=== PATIENT | male | born 1945 | race Caucasian/White ===

== ENCOUNTER 2018-03-07 08:50 | Outpatient (CLI) | payer MEDICARE, BC ==
--- NOTE | 2018-03-07 11:25 | PRG ---
DATE OF SERVICE: 03/07/2018 SUBJECTIVE: A 72-year-old male who presents to the wound clinic today for a followup on his right fo ot plantar forefoot ulceration. The patient has had this wound for approximately 4 months. I have conrad dickn seeing him in my regular Podiatry clinic and I have transferred him [facility] for more advanced therapy. He has been getting daily gauze dressing changes and biweekly debridemen ts with minimal improvement. We have recently placed him into a mobilization walking boot in order t o reduce the pressure on the wound. The patient states that the pain in the wound has actually reduc ed. The patient denies nausea, vomiting, fevers or chills at this time. He continues to smoke again st my recommendations to work on cessation. PHYSICAL EXAMINATION: Ulceration to the right plantar sub-third metatarsal head area measures 0.6 cm x 0.3 cm x 0.5 cm of depth. There is a 90% granulation tissue, 10% slough. Periwound hyperkeratoti c buildup is present. No periwound erythema, edema or warmth. ASSESSMENT: 1. 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 2. Peripheral vascular disease. 3. Nicotine dependence. PLAN: 1. Again, discussed tobacco cessation, which he declines. 2. Full thickness debridement of the hyperkeratotic buildup as well as the wound base, removing all nonviable tissue within the wound base and biofilm with a 15 blade and dermal curet down to a bleedin g granular wound base. 3. I am going to start him on daily Promogran to wound base with Aquacel AG covering, gauze and [place] n. He is to continue wearing the immobilization boot at all times when standing and walking, not to use the boot while driving. 4. The patient will follow up with me in 1 week.
[2018-03-07] MEDS ORDERED: Sodium Chloride 0.9% 15 ML NEB ONE (14:48)
== END 2018-03-07 08:51 | disposition home or self-care (01) ==
LOC: WCC 08:50
PROVIDERS: ATTEND Podiatrist Foot & Ankle Surgery
DX: L97.419 Non-pressure chronic ulcer of right heel and midfoot with unspecified severity (principal); I73.9 Peripheral vascular disease, unspecified; F17.200 Nicotine dependence, unspecified, uncomplicated
CPT/HCPCS: 11042; 99204; A4218; G0463

== ENCOUNTER 2018-03-14 10:47 | Outpatient (CLI) | payer MEDICARE, BC ==
--- NOTE | 2018-03-14 13:25 | PRG ---
DATE OF SERVICE: 03/14/2018 SUBJECTIVE: This is a 72-year-old male who returns today for followup right plantar foot ulceration. He has been having his to do the daily dressing changes with Promogran, Aquacel AG, gauze and Kerlix and has had no problems with this. Denies nausea, vomiting, fevers or chills. PHYSICAL EXAMINATION: Ulceration to the right plantar forefoot measuring 0.6 cm x 0.2 cm x 0.5 cm. There is hyperkeratotic buildup around the wound. Less maceration. No periwound erythema, edema or warmth. No malodor. No drainage. Does not probe to bone or tendon. ASSESSMENT: 1. Non-pressure chronic ulceration of the right plantar forefoot. 2. Peripheral vascular disease, unspecified. PLAN: 1. Full thickness debridement of subcutaneous tissue layer down to a bleeding granular wound base, r emoving all nonviable tissue from the wound base as well as biofilm, hyperkeratotic tissue area from around the wound edges. This was done with a 15 blade and dermal curette. The patient tolerated the procedure well. 2. I am going to continue with Promogran and Aquacel AG dressing changes on a daily basis and contin ue with offloading boot at all times. 3. The patient will follow up with me in 1 week.
[2018-03-17] MEDS ORDERED: Sodium Chloride 0.9% 15 ML NEB ONE (20:54)
== END 2018-03-14 10:48 | disposition home or self-care (01) ==
LOC: WCC 10:47
PROVIDERS: ATTEND Podiatrist Foot & Ankle Surgery
DX: L97.419 Non-pressure chronic ulcer of right heel and midfoot with unspecified severity (principal); I73.9 Peripheral vascular disease, unspecified
CPT/HCPCS: 11042

== ENCOUNTER 2019-03-19 11:08 | Inpatient (IN) | payer MEDICARE, BC ==
--- NOTE | 2019-03-19 11:55 | RAD ---
THREE VIEWS RIGHT FOOT: COMPARISON: None. HISTORY: Right foot swelling. Wound on the bottom of the foot. FINDINGS: Three views of the right foot show the patient to be status post amputation of the 2nd toe through th e metatarsophalangeal joint. No fracture or dislocation are seen. No osseous erosions are seen. IMPRESSION: No osseous erosions identified. POS: [facility]
[2019-03-19 12:26] LABS: #Eosinphils 0.1 thou/uL (0.0-0.7); #Lymphocytes 1.5 thou/uL (1.20-3.40); #Monocytes 1.3 thou/uL (0.11-0.59); #Neutrophils 11.6 thou/uL (1.40-6.50); %Basophils 0.2 % (0.0-1.0); %Eosinophils 0.5 % (0.0-10.0); %Lymphocytes 10.2 % (21.0-51.0); %Neutrophils 80.1 % (42.0-75.0); Hemoglobin 16.6 g/dL (14.0-18.0); Mean Corpuscular HGB CONC 32.9 g/dL (32.0-36.0); Mean Corpuscular Hemoglobin 31.1 pg (27.0-31.0); Mean Corpuscular Volume 94.6 fL (78.0-98.0); Mean Platelet Volume 7.3 fL (7.4-10.4); Platelet Count 190 thou/uL (130-400); RBC Distribution Width 12.7 % (11.5-14.5); Red Blood Cell (RBC) Count 5.34 mill/uL (4.70-6.10); White Blood Cell (WBC) Count 14.5 thou/uL (4.8-10.8)
[2019-03-19 12:49] LABS: ALT (SGPT) 13 U/L (8-55); AST (SGOT) 18 U/L (5-34); Albumin 4.2 g/dL (3.4-4.8); Alkaline Phosphatase 71 U/L (40-150); Anion Gap 16 mmol/L (10-20); BUN (Urea Nitrogen) 24 mg/dL (8.4-25.7); Bilirubin, Total 1.5 mg/dL (0.2-1.2); Calc. Creatinine Clearance 0 mL/min (70-130); Calcium 9.6 mg/dL (7.8-10.44); Carbon Dioxide 22 mmol/L (23-31); Chloride 100 mmol/L (98-107); Estimated GFR-MDRD 67; Glucose 109 mg/dL (83-110); Potassium 4.1 mmol/L (3.5-5.1); Protein, Total 7.2 g/dL (5.8-8.1); Sodium 134 mmol/L (136-145)
[2019-03-19] MEDS ORDERED: Ondansetron ODT 4 MG TAB SL PRN (16:36)
[2019-03-19] MEDS ORDERED: HYDROcodone/Acetaminophen 5/325 mg Tablet PO PRN ×2 (16:36)
[2019-03-19] MEDS ORDERED: Acetaminophen 325 MG TAB PO PRN (16:36)
[2019-03-19] MEDS ORDERED: Ondansetron PF 4 MG/2 ML Vial IVP PRN (16:36)
[2019-03-19 16:53] VITALS: BMI 27.4
[2019-03-19] MEDS: Clindamycin/D5W 900 MG in Premix Bag 1 BAG IVPB SCH (19:25)
[2019-03-19] MEDS: Vancomycin HCl 1 GM in Premix Bag 1 BAG IVPB SCH (19:26)
[2019-03-19] MEDS ORDERED: Heparin 1,000 UNITS/ML VIAL ONE (20:38)
--- NOTE | 2019-03-19 22:26 | HP ---
CHIEF COMPLAINT: Foot infection. HISTORY OF PRESENT ILLNESS: This patient is a 73-year-old male with no significant past medical history other than tobacco abuse, who had a history of osteomyelitis in his right second toe requiring amputation. Since that time, the patient has had problems with calluses on his feet, primarily on that right foot. He has developed callus on the plantar surface of the forefoot, which has been followed by Dr. Hummel and felt like they were making good progress, wearing appropriate shoes, keeping it appropriately bandaged. Subsequently, the patient saw Dr. Hummel yesterday, because he was having some increased redness and evidence of infection. Dr. Hummel put him on Augmentin. He took 1 pill and subsequently had multiple episodes of nausea, vomiting, diarrhea, abdominal cramping, sweats and lightheadedness. He called Dr. Hummel back and he recommended he come to the emergency department. They have been treating this with Aquacel in a silver solution and has felt like it was actually doing fairly well until Saturday when this became more inflamed. REVIEW OF SYSTEMS: All other systems reviewed and essentially negative. All pertinent positives and negatives noted in the history of present illness. Specifically the patient has denied any fevers or chills. PAST MEDICAL HISTORY: Negative other than the above-mentioned osteomyelitis. 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 PAST SURGICAL HISTORY: Cataractectomy, right second toe amputation secondary to osteomyelitis and a partial colon resection due to the colovesicular fistula and diverticular disease. FAMILY HISTORY: Mother at 86. Father at 91. Does not believe either one of them had any significant medical issues. SOCIAL HISTORY: The patient smokes 2 packs a day. He states he does drink alcohol, but only couple of beers on occasion, nothing regular. Denies drugs. He is . He is full code and his would be his surrogate decision maker. CURRENT MEDICATIONS: Calcium supplements and aspirin. ALLERGIES: ONLY THE ABOVE-MENTIONED AUGMENTIN, WHICH CAUSED THE GI DISTRESS. PHYSICAL EXAMINATION: VITAL SIGNS: Temperature 97.8, pulse 65, respirations 18, O2 saturation 97% on room air, BP 138/82. GENERAL APPEARANCE: Age-appropriate male, in no distress. He is awake, alert, oriented, pleasant, cooperative. HEENT: PERRL, no OP lesions. NECK: Supple and symmetric. HEART: Regular rate and rhythm without murmurs, gallops, or rubs. LUNGS: Clear to auscultation bilaterally with good chest wall expansion and air exchange. ABDOMEN: Soft, nontender, and nondistended. Positive bowel sounds. No masses. No organomegaly. EXTREMITIES: The upper extremities are normal. Right lower extremity has the surgically absent right second toe with some flexion type changes in the toes lateral to that. There is a 1.5 cm callused area with central necrosis on the plantar surface of the central forefoot. Under the metatarsophalangeal joint of the 3rd toe, there is erythema extending over the dorsum of the foot back to near the ankle. Pulses are present in PT and dorsalis pedis bilaterally. NEUROLOGIC: He appears to be intact. He has normal sensation. PSYCHIATRIC: Normal affect and behavior. LABORATORY DATA: White count 14.5, hemoglobin 6.6, platelets 190. Sodium 134, potassium 4.1, chloride 100, CO2 22, BUN 24, creatinine is 1.08, rather glucose 109, lactic acid 1.1, total bilirubin 1.5, ALT 13, AST 18, albumin 4.2. IMAGING: Foot x-ray is negative for acute changes. IMPRESSION AND PLAN: 1. Cellulitis of the right lower extremity in a patient with a prior toe amputation for osteomyelitis and chronic callus formation. The patient attempted oral antibiotics, but had significant side effects to that. He is now admitted to the hospital on IV vancomycin. We will continue that for now. Consult Dr. Hummel. Continue with wound care consult. Once the patient appears to have some resolution of the cellulitic changes, he can likely be switched to p.o. In the meantime, we will order a CRP. If that is positive, we will need to consider an MRI to rule out osteomyelitis. 2. Tobacco abuse, chronic, stable. Needs cessation counseling. Job ID: [id number] [facility]
[2019-03-20] MEDS: Clindamycin/D5W 900 MG in Premix Bag 1 BAG IVPB SCH ×2 (05:06→15:08)
[2019-03-20 07:11] LABS: #Eosinphils 0.3 thou/uL (0.0-0.7); #Lymphocytes 2.5 thou/uL (1.20-3.40); #Monocytes 1.2 thou/uL (0.11-0.59); #Neutrophils 6.2 thou/uL (1.40-6.50); %Basophils 0.5 % (0.0-1.0); %Eosinophils 3.3 % (0.0-10.0); %Lymphocytes 24.2 % (21.0-51.0); %Monocytes 11.5 % (0.0-10.0); %Neutrophils 60.7 % (42.0-75.0); Hemoglobin 15.7 g/dL (14.0-18.0); Mean Corpuscular Hemoglobin 32.8 pg (27.0-31.0); Mean Corpuscular Volume 96.7 fL (78.0-98.0); Mean Platelet Volume 7.7 fL (7.4-10.4); Platelet Count 181 thou/uL (130-400); RBC Distribution Width 12.7 % (11.5-14.5); Red Blood Cell (RBC) Count 4.79 mill/uL (4.70-6.10); White Blood Cell (WBC) Count 10.3 thou/uL (4.8-10.8)
[2019-03-20] MEDS: Vancomycin HCl 1 GM in Premix Bag 1 BAG IVPB SCH ×2 (07:59→20:24)
[2019-03-20] MEDS: Enoxaparin Sodium 40 MG/0.4 ML SYRINGE SC SCH (08:00)
--- NOTE | 2019-03-20 13:23 | MRI ---
MRI RIGHT FOREFOOT WITHOUT CONTRAST: Date: 03/20/19 HISTORY: Cellulitis, ulcer. Partial amputation of second digit. Chronic nonhealing ulcer with redness. COMPARISON: Foot radiographs of 03/19/19. FINDINGS: Bones: There is some mild loss of normal marrow signal within the second metatarsal head at the amputation s ite extending to the neck with reactive edema extending to the mid diaphysis. There is a subtle plant ar cortical erosion. Remainder of the bones are without abnormality. Soft Tissues: There is a plantar soft tissue ulcer at the amputation site of the second digit with large area of T1 hypo and T2 hyperintense material suggesting phlegmon and likely abscess. There is extension to the skin soft tissues. Overall, the fluid collection surrounding the metatarsal head measures approximately 1.5 x 2.0 cm x 1 .2 cm. There is retraction of the flexor tendons second digit. IMPRESSION: Osteomyelitis of the second metatarsal head with small plantar cortical erosion with surrounding phle gmon and abscess within sinus tract of the skin. POS: [facility]
--- NOTE | 2019-03-20 14:46 | PDOC.PN ---
- Subjective Encounter Start Date: 03/20/19 Encounter Start Time: 08:20 Pt seen for followup re: foot infection. Denies chest pain, shortness of breath , fevers or chills. - Objective Resuscitation Status - Order Detail: 03/19/19 17:46 Resuscitation Status Routine Resuscitation Status: FULL: Full Resuscitation Vital Signs & Weight: Vital Signs (12 hours) Temp Pulse Resp BP Pulse Ox 03/20/19 08:00 97 03/20/19 07:43 98.1 F 56 L 16 118/79 97 Weight Admit Weight 191 lb 8 oz Weight 191 lb 8 oz I&O: 03/19/19 03/20/19 03/21/19 06:59 06:59 06:59 Intake Total 670 480 Balance 670 480 Result Diagrams: 03/20/19 05:41 03/19/19 12:15 Phys Exam - Physical Examination Constitutional: NAD HEENT: moist MMs Neck: supple Respiratory: clear to auscultation bilateral Cardiovascular: RRR Gastrointestinal: soft Neurological: moves all 4 limbs Psychiatric: normal affect Deviation from normal: wounds as documented Dx/Plan (1) Foot infection Code(s): L08.9 - LOCAL INFECTION OF THE SKIN AND SUBCUTANEOUS TISSUE, UNSP Status: Acute Comment: MRI foot to r/o osteomyelitis, continue IV vancomycin and clindamycin (2) Tobacco abuse Code(s): Z72.0 - TOBACCO USE Status: Chronic Comment: Pt counseled re: tobacco cessation - Plan * . Review of Systems - Review of Systems Gastrointestinal: negative: Nausea, Vomiting, Abdominal Pain, Diarrhea, Constipation, Melena, Hematochezia Genitourinary: negative: Dysuria, Frequency, Incontinence, Hematuria, Retention Musculoskeletal: Foot Pain. negative: Neck Pain, Shoulder Pain, Arm Pain, Back Pain, Hand Pain, Leg Pain - Medications/Allergies Allergies/Adverse Reactions: Allergies Allergy/AdvReac Type Severity Reaction Status Date / Time amoxicillin [From Augmentin] AdvReac Unverified 03/19/19 16:36 clavulanic acid AdvReac Unverified 03/19/19 16:36 [From Augmentin] Medications: Current Medications Enoxaparin Sodium (Lovenox) 40 mg SC 0900 [facility] Last Admin: 03/20/19 08:00 Dose: 40 mg Vancomycin HCl 1 gm/ Device 200 mls @ 200 mls/hr IVPB Q12HR [facility] Last Admin: 03/20/19 07:59 Dose: 200 mls Clindamycin Phosphate/Dextrose (900 mg/ Device) 50 mls @ 100 mls/hr IVPB Q8HR [facility] Last Admin: 03/20/19 05:06 Dose: 50 mls
[2019-03-20] MEDS: cefTRIAXone\\ROCEPHIN 2 GM in Sodium Chloride 0.9% 100 ML IVPB SCH (17:45)
[2019-03-20] MEDS: metroNIDAZOLE 500 MG TAB PO SCH (20:24)
--- NOTE | 2019-03-20 21:43 | CON ---
DATE OF CONSULTATION: 03/20/2019 REASON FOR CONSULTATION: Osteomyelitis, right foot. HISTORY OF PRESENT ILLNESS: Mr. Chahal is a 73-year-old patient with history of chronic smoking and prior 2nd toe amputation right foot, which developed after a chronic ulcer at the tip of the second toe. This occurred about 2 years before this admission and the patient did relatively well until a few months ago when he started noticing a lot of callus development at the bottom aspect of the right forefoot and these were taken care of by Dr. Hummel and things were actually looking pretty well until this past week when he developed sudden progression of inflammatory changes at the dorsal aspect of the right forefoot and he was then admitted by Dr. Hummel for a surgical intervention after the MRI demonstrated osteomyelitis of the remnant of the second metatarsal. He is otherwise feeling well. He is kind of anxious to go home because of his needs him to care for her. He denies any headaches. No visual symptoms, sore throat, odynophagia, or dysphagia. No chest pain or abdominal pain. No diarrhea. No genitourinary symptoms. He has a little bit of pain in the right foot. MEDICAL HISTORY: Remarkable for chronic smoking and that is about it. He had this partial amputation of the second toe right foot, prior colectomy for management of perforated diverticulitis here at [place]. ALLERGIES: NO TRUE HYPERSENSITIVITY REACTION TO ANY MEDICATION. HE DID HAVE NAUSEA FROM AUGMENTIN INTAKE. FAMILY HISTORY: Noncontributory. SOCIAL HISTORY: He is , retired, lives in [place]. Still smoking 2 packs per day. PHYSICAL EXAMINATION: VITAL SIGNS: T-max 98.2, blood pressure 118/79, pulse of 56, respirations 16, and O2 saturation 97%. SKIN: There is the area of erythema in the dorsal aspect of the right foot extending from the forefoot, particularly is concentrated around the amputation site the second toe going towards the midfoot region. On the bottom aspect, there is chronic ulcer, which is most likely the source of this infection and has been debrided previously few times. No other skin lesions. Some element of hammertoe noted in the right and left feet. No lymphadenopathy. HEENT: Ocular movements conjugate. Sclerae white. Oral cavity with still few teeth in place with marked decay and gum disease. NECK: Supple. No jugular vein distention or carotid bruits. LUNGS: With diminished breath sounds and some expiratory wheezing, right and left hemithorax. HEART: S1 and S2. Regular rate. No S3 or S4. ABDOMEN: Soft, not distended or tender. No ascites. No bladder distention. MUSCULOSKELETAL: No joint inflammatory activity. Pulses are 1+ in popliteal and 1+ in dorsalis pedis and posterior tibialis. Cap refill is normal. NEURO: Nonfocal. Cognitive function appears to be normal. Speech is normal. Recall is normal as well. LABORATORY DATA: White cell count 14.5, down to 10.3, hemoglobin 16, platelets 190 with 80% neutrophils. Sodium 134, creatinine 1.08, bilirubin 1.5 with normal transaminases and alkaline phosphatase. CRP was 8.78, albumin 4.2. IMAGING STUDIES: Include a foot x-ray with no evidence of osseous erosions in the lower extremity MRI with ulcer at the amputation site second digit and the large area of T1 hypointensity and T2 hyperintensity suggestive of phlegmon and abscess with extension into the skin and soft tissues and there was evidence of osteomyelitis of the second metatarsal head with cortical erosion. ASSESSMENT AND PLAN: Chronic smoking and previous second toe amputation with now chronic ulcer at the bottom aspect of the second MPJ skin site with osteomyelitis of the second metatarsal remnant with abscess/phlegmon surrounding this lesion. The patient will need surgical intervention and he is anxious to go home, but it will be somewhat difficult to get everything in line for proper discharge planning, but we will go ahead and write for PICC line since it is very likely he is going to need one to facilitate early discharge planning tomorrow. We will have to continue broad-spectrum coverage until culture results are back, so we can deescalate to a more narrow regimen according to culture results. Job ID: [id number]
--- NOTE | 2019-03-21 02:45 | CON ---
DATE OF CONSULTATION: SUBJECTIVE FINDINGS: I was asked to come and see the patient at the hospital for consult on ulceration. The patient was seen in my office on Saturday. On Saturday, he had cellulitis and swelling of the dorsal foot. There was some drainage from the wound and tracking at about position 3 o'clock when looking at the ulcer. There was some expression of serosanguineous type fluid, which was cultured and sent. That report was received today and showed few skin cells and Gram-positive cocci. When arriving to the patient's room, the patient was sitting on the bed, reading the paper and was comfortable. He states his foot is feeling better. The redness is resolving with his time in the hospital and on IV antibiotics. OBJECTIVE FINDINGS: The patient has a white count. The patient has some type of DuoDerm dressing on. Examination of the foot shows reduced erythema and swelling as noted by my previous skin de from Saturday. Some drainage on the plantar foot noted. Examination of the ulcer shows no marissa pus. IMAGING: X-rays taken in my office on Saturday as well as x-rays from the emergency room yesterday showed no marissa changes consistent with osteomyelitis. MRI was ordered this morning and the MRI report this afternoon showed osteomyelitis of the distal 2nd metatarsal with edema in the medullary canal extending to the neck of the 2nd metatarsal. There is also an abscess at the distal aspect of the 2nd metatarsal distally. ASSESSMENT AND PLAN: I discussed with the patient all the findings including the increased white count, positive MRI findings and we discussed treatment options. It is at this time we have elected to go forward with surgical I and D with resection of the distal aspect of the 2nd metatarsal head and most likely the 3rd metatarsal head due to this being the contributing problem to the chronic ulcer. The patient is very concerned about getting home tomorrow. I expressed to the patient I have no way of telling him that is possible or not possible. I told him that the plan would be figuring out what antibiotics he needs and figuring out a wound care regimen for him. Surgery has been scheduled for tomorrow morning for right foot incision and drainage with distal 2nd metatarsal resection as well as again most likely 3rd metatarsal resection. Also plan is to dress the foot with a wound VAC. Job ID: [id number]
[2019-03-21] MEDS: Enoxaparin Sodium 40 MG/0.4 ML SYRINGE SC SCH (07:35)
[2019-03-21] MEDS: metroNIDAZOLE 500 MG TAB PO SCH ×3 (07:35→20:44)
[2019-03-21] MEDS: Vancomycin HCl 1 GM in Premix Bag 1 BAG IVPB SCH ×2 (07:36→20:44)
[2019-03-21] MEDS ORDERED: Bupivacaine PF 0.5% 30 ML VIAL ONE (09:01)
[2019-03-21] MEDS ORDERED: Neomycin-Polymyxin 1 ML AMP ONE ×2 (09:01→09:47)
[2019-03-21] MEDS ORDERED: Fentanyl 100 MCG/2 ML VIAL ONE (09:03)
--- NOTE | 2019-03-21 13:48 | SPC ---
SONOGRAPHIC GUIDED RIGHT UPPER EXTREMITY PICC PLACEMENT: Date: 03/21/19 HISTORY: Osteomyelitis. FINDINGS: After explaining the procedure and answering all questions, the right upper extremity was prepped and draped in the usual sterile fashion. Sterile technique, buffered local anesthesia, sonographic ashley nce, and a 22 gauge needle were used to carefully access the right brachial vein. With advancing the wire, there was difficulty at the level of the subclavian vein. The catheter was placed to the level of the subclavian vein and a small amount of contrast injected. There is marked narrowing of the central most aspect of the right subclavian vein near the junction w ith the inferior vena cava. Some collateral flow. A .018 wire was carefully teased into the superior vena cava and the 5 [place] single lumen PICC placed with the tip at the SVC. Cause for venous narrowi ng was not evident. Patient tolerated procedure well and was returned in unchanged condition. IMPRESSION: 1. Right upper extremity PICC is ready for use. 2. Some apparent narrowing of the most central aspect of the right subclavian vein. No obvious mass is apparent on fluoroscopy. This could represent a benign stricture. Please consider further evaluati on with CT chest to evaluate for cause of right subclavian vein narrowing. POS: [facility]
[2019-03-21] MEDS: cefTRIAXone\\ROCEPHIN 2 GM in Sodium Chloride 0.9% 100 ML IVPB SCH (16:26)
[2019-03-21] MEDS ORDERED: Lidocaine 1% PF 5 ML VIAL ONE (17:10)
[2019-03-21] MEDS ORDERED: Ondansetron PF 4 MG/2 ML Vial ONE (17:10)
[2019-03-21] MEDS ORDERED: PROPOFOL 200 MG/20 ML VIAL ONE (17:10)
[2019-03-21] MEDS ORDERED: Dexamethasone 20 MG/5 ML VIAL ONE (17:10)
--- NOTE | 2019-03-21 17:18 | OP ---
DATE OF PROCEDURE: 03/21/2019 PREPROCEDURE DIAGNOSES: 1. Chronic ulcer, right plantar foot. 2. Abscess, right foot. 3. Osteomyelitis of the second metatarsal, right foot. POSTOPERATIVE DIAGNOSES: 1. Chronic ulcer, right plantar foot. 2. Abscess, right foot. 3. Osteomyelitis of the second metatarsal, right foot. 4. Exposed third metatarsal head right foot. PROCEDURES PERFORMED: Excision of ulcer and callus tissue, incision and drainage of abscess, resection of the second and third metatarsal heads and base of the proximal phalanx of the third digit. ANESTHESIA: General with local 10 mL of 0.5% plain Marcaine used in an ankle block right foot. HEMOSTASIS: Well-padded pneumatic ankle tourniquet used at the beginning of the case for 20 minutes during dissection. ESTIMATED BLOOD LOSS: Less than 50 mL. ASSISTANTS: No assistants. DESCRIPTION OF PROCEDURE: The patient was taken to the operating room, placed on the operating room table in the supine position. After general anesthesia was achieved, a right ankle block was performed. The right lower extremity was then scrubbed and draped in usual surgical manner. Attention was directed to the plantar right foot. Excision of the ulcer and surrounding callus tissue was performed full thickness through the dermis. This tissue was excised and removed. At this time, the sinus tract abscess presented itself by pustular drainage and necrotic fat being expressed. Culture and sensitivity taken at this time. This was passed off and sent to the lab. Inspection of the wound showed an exposed third metatarsal head with some changes to the articular cartilage. Also noted was soft distal second metatarsal bone as well as irregular appearing cartilage with a defect at this time, a power saw was utilized to incise and remove the head of the second and third metatarsals. Also done was resection of the base of the proximal phalanx of the third digit to remove the cartilage from the wound. Next, with sharp and blunt dissection and rongeur, all necrotic and nonviable tissues were removed. At this time, the pneumatic tourniquet was dropped. A 3 L bag of solution was used as a pulse lavage to the wound. [place] through, pulse lavage was stopped. Wound inspected, all tissues appeared to be viable and healthy. After 3 L of pulse lavage was performed, the Wound Care team presented and applied a wound VAC. The patient tolerated the anesthesia and procedure well. He left the operating room to recovery with vital signs stable. The patient tolerated the anesthesia and procedure well. The patient is being readmitted to the hospital for physical therapy, gait training, wound care, as well as deciding appropriate antibiotic therapy. Job ID: [id number]
--- NOTE | 2019-03-21 17:22 | OP ---
DATE OF PROCEDURE: 03/21/2019 PREOPERATIVE DIAGNOSIS: 1. Abscess, right foot. 2. Osteomyelitis second metatarsal distally. 3. Chronic ulcer, right plantar foot. POSTOPERATIVE DIAGNOSES: 1. Abscess, right foot. 2. Osteomyelitis second metatarsal distally. 3. Chronic ulcer, right plantar foot. 4. Exposed third metatarsal head in the wound. ANESTHESIA: General with local 10 mL of 0.5% plain Marcaine utilized. HEMOSTASIS: Well-padded pneumatic ankle tourniquet used at the beginning of the case for 20 minutes. ESTIMATED BLOOD LOSS: Less than 50 mL. PROCEDURES PERFORMED: 1. Excision of ulcer, incision and drainage of abscess. 2. Excision of distal metatarsal heads. 3. Excision of base of proximal phalanx of third digit. PATHOLOGY: Some necrotic tissue abscess noted. Culture and sensitivity taken and sent. COMPLICATIONS: None. Job ID: [id number]
--- NOTE | 2019-03-21 17:31 | PDOC.PN ---
- Subjective Encounter Start Date: 03/21/19 Encounter Start Time: 09:00 Pt seen for followup re:foot infection. Says he feels well. - Objective Resuscitation Status - Order Detail: 03/19/19 17:46 Resuscitation Status Routine Resuscitation Status: FULL: Full Resuscitation Vital Signs & Weight: Vital Signs (12 hours) Temp Pulse Resp BP Pulse Ox 03/21/19 11:10 97.9 F 69 18 152/88 H 94 L 03/21/19 08:00 95 03/21/19 07:23 98.0 F 64 20 100/64 95 Weight Admit Weight 191 lb 8 oz Weight 191 lb 8 oz I&O: 03/20/19 03/21/19 03/22/19 06:59 06:59 06:59 Intake Total 670 1160 Balance 670 1160 Result Diagrams: 03/20/19 05:41 03/19/19 12:15 Phys Exam - Physical Examination Constitutional: NAD HEENT: moist MMs Neck: supple Respiratory: clear to auscultation bilateral Cardiovascular: RRR Gastrointestinal: soft Neurological: moves all 4 limbs Psychiatric: normal affect Dx/Plan (1) Foot infection Code(s): L08.9 - LOCAL INFECTION OF THE SKIN AND SUBCUTANEOUS TISSUE, UNSP Status: Acute Comment: s/p R foot surgery, awaiting outpt antibiotics (2) Tobacco abuse Code(s): Z72.0 - TOBACCO USE Status: Chronic Comment: Pt counseled re: tobacco cessation - Plan * . Review of Systems - Review of Systems Cardiovascular: negative: chest pain, palpitations, orthopnea, paroxysmal nocturnal dyspnea, edema, light headedness Gastrointestinal: negative: Nausea, Vomiting, Abdominal Pain, Diarrhea, Constipation, Melena, Hematochezia - Medications/Allergies Allergies/Adverse Reactions: Allergies Allergy/AdvReac Type Severity Reaction Status Date / Time amoxicillin [From Augmentin] AdvReac Intermediate Verified 03/21/19 13:02 clavulanic acid AdvReac Intermediate Verified 03/21/19 13:02 [From Augmentin] Medications: Current Medications Enoxaparin Sodium (Lovenox) 40 mg SC 0900 [facility] Last Admin: 03/21/19 07:35 Dose: Not Given Vancomycin HCl 1 gm/ Device 200 mls @ 200 mls/hr IVPB Q12HR [facility] Last Admin: 03/21/19 07:36 Dose: 200 mls Ceftriaxone Sodium 2 gm/ (Sodium Chloride) 100 mls @ 200 mls/hr IVPB Q24HR [facility] Last Admin: 03/21/19 16:26 Dose: 100 mls Metronidazole (Flagyl) 500 mg PO TID [facility] Last Admin: 03/21/19 15:47 Dose: 500 mg
[2019-03-22] MEDS: Calcium Carbonate + Vit D 1 TAB PO SCH (07:50)
[2019-03-22] MEDS: Enoxaparin Sodium 40 MG/0.4 ML SYRINGE SC SCH (07:50)
[2019-03-22] MEDS: metroNIDAZOLE 500 MG TAB PO SCH ×3 (07:50→20:30)
[2019-03-22 08:16] LABS: Vancomycin, Trough 10.9 ug/mL
[2019-03-22] MEDS ORDERED: Vancomycin HCl 1 GM in Premix Bag 1 BAG IVPB SCH (09:00)
[2019-03-22] MEDS ORDERED: Vancomycin HCl 1.25 GM in Sodium Chloride 0.9% 250 ML 250 ML IVPB SCH (09:00)
[2019-03-22] MEDS: DAPTOmycin 500 MG in Sodium Chloride 0.9% 100 ML IVPB SCH (12:35)
--- NOTE | 2019-03-22 13:59 | PDOC.PN ---
- Subjective Encounter Start Date: 03/22/19 Encounter Start Time: 08:20 Pt seen for followup re: osteomyelitis. Denies fevers or chills. - Objective Resuscitation Status - Order Detail: 03/19/19 17:46 Resuscitation Status Routine Resuscitation Status: FULL: Full Resuscitation Vital Signs & Weight: Vital Signs (12 hours) Temp Pulse Resp BP Pulse Ox 03/22/19 08:00 97 03/22/19 07:37 97.8 F 65 16 128/76 97 Weight Admit Weight 191 lb 8 oz Weight 191 lb 8 oz I&O: 03/21/19 03/22/19 03/23/19 06:59 06:59 06:59 Intake Total 1160 800 600 Balance 1160 800 600 Result Diagrams: 03/20/19 05:41 03/19/19 12:15 Phys Exam - Physical Examination Constitutional: NAD HEENT: moist MMs Neck: supple Respiratory: clear to auscultation bilateral Cardiovascular: RRR Gastrointestinal: soft R foot wound vac Neurological: moves all 4 limbs Psychiatric: normal affect Dx/Plan (1) Foot osteomyelitis, right Code(s): M86.9 - OSTEOMYELITIS, UNSPECIFIED Status: Acute Comment: s/p R foot surgery, on daptomycin, ceftriaxone and Flagyl (2) Tobacco abuse Code(s): Z72.0 - TOBACCO USE Status: Chronic Comment: Pt counseled re: tobacco cessation - Plan * . Review of Systems - Review of Systems Constitutional: negative: fever, chills, sweats, weakness, malaise Musculoskeletal: negative: Neck Pain, Shoulder Pain, Arm Pain, Back Pain, Hand Pain, Leg Pain, Foot Pain - Medications/Allergies Allergies/Adverse Reactions: Allergies Allergy/AdvReac Type Severity Reaction Status Date / Time amoxicillin [From Augmentin] AdvReac Intermediate Verified 03/21/19 13:02 clavulanic acid AdvReac Intermediate Verified 03/21/19 13:02 [From Augmentin] Medications: Current Medications Calcium/Vitamin D (Caltrate 600 + Vit D) 1 tab PO DAILY [facility] Last Admin: 03/22/19 07:50 Dose: 1 tab Enoxaparin Sodium (Lovenox) 40 mg SC 0900 [facility] Last Admin: 03/22/19 07:50 Dose: 40 mg Ceftriaxone Sodium 2 gm/ (Sodium Chloride) 100 mls @ 200 mls/hr IVPB Q24HR [facility] Last Admin: 03/21/19 16:26 Dose: 100 mls Daptomycin 500 mg/ Sodium (Chloride) 100 mls @ 200 mls/hr IVPB Q24HR [facility] Last Admin: 03/22/19 12:35 Dose: 100 mls Metronidazole (Flagyl) 500 mg PO TID [facility] Last Admin: 03/22/19 07:50 Dose: 500 mg
[2019-03-22] MEDS: cefTRIAXone\\ROCEPHIN 2 GM in Sodium Chloride 0.9% 100 ML IVPB SCH (16:40)
[2019-03-23] MEDS: Calcium Carbonate + Vit D 1 TAB PO SCH (08:17)
[2019-03-23] MEDS: metroNIDAZOLE 500 MG TAB PO SCH ×2 (08:17→15:01)
[2019-03-23] MEDS: Enoxaparin Sodium 40 MG/0.4 ML SYRINGE SC SCH ×2 (08:17→08:22)
[2019-03-23] MEDS: DAPTOmycin 500 MG in Sodium Chloride 0.9% 100 ML IVPB SCH (11:02)
[2019-03-23] MEDS: cefTRIAXone\\ROCEPHIN 2 GM in Sodium Chloride 0.9% 100 ML IVPB SCH (15:33)
[2019-03-23 16:09] VITALS: BP 147/93; TEMP 98.1
--- NOTE | 2019-03-23 16:23 | RAD ---
RIGHT FOOT THREE VIEWS: History: Post op follow up. Comparison: 03-19-19 FINDINGS: There has been repeat amputation since prior exam. There has been amputation of the distal 2nd and 3r d metatarsals at the midshaft. There has been amputation of the proximal aspect of the proximal phala nx of the third toe. The second toe has been previously removed. Soft tissue lucency seen at the amputation site. DJD at the first MTP joint is noted. Degenerative ch anges in intertarsal joints again noted. No focal osseous destruction or erosive change. IMPRESSION: Abnormal soft tissue lucency at the amputation site. This could represent soft tissue gas or abscess. No acute osseous abnormality. POS: TPC
--- NOTE | 2019-03-24 02:56 | DIS ---
DATE OF ADMISSION: 03/19/2019 DATE OF DISCHARGE: 03/23/2019 PRIMARY CARE PROVIDER: Dr. Scooter Zarco. DISCHARGE DIAGNOSES: 1. Right foot osteomyelitis. 2. Tobacco abuse. CONDITION OF PATIENT ON THE DAY OF DISCHARGE: Stable. I assessed Mr. Chahal on the day of discharge. He denies any chest pain or shortness of breath. Vital signs are stable. S1 and S2 are heard, regular. Lungs are clear to auscultation bilaterally. CONSULTATIONS DURING THIS HOSPITALIZATION: 1. Podiatry, Dr. Ammon Hummel. 2. Infectious Diseases, Dr. Vipul Tripp. DISCHARGE MEDICATIONS: 1. Aspirin 325 mg 2 times a day. 2. Calcium carbonate/vitamin D3 one tablet daily. 3. Ceftriaxone 2 g every 24 hours until 04/18/2019. 4. Daptomycin 500 mg IV daily until 04/18/2019. 5. Flagyl 500 mg 3 times a day for 27 days. HOSPITAL COURSE: Mr. Chahal is a pleasant 73-year-old gentleman, who was admitted to [facility] for right foot infection. Please refer to Dr. Alba's history and physical note dated 03/19/2019, for further details. He had MRI of the right foot, which showed osteomyelitis of the second metatarsal head with small plantar cortical erosion with surrounding phlegmon and abscess within sinus tract of the skin. He was seen by Podiatry and Infectious Disease Services. On 03/21, he underwent excision of ulcer and callus tissue, incision and drainage of abscess, resection of second and third metatarsal heads and base of the proximal phalanx of the third digit. He is being discharged home with arrangements made for outpatient antibiotics and wound VAC. He has been advised to stop smoking. Many thanks for allowing me to participate in your patient's care. Please feel free to contact me with any questions or concerns. DISCHARGE DESTINATION: Home. TOTAL AMOUNT OF TIME SPENT COORDINATING THIS DISCHARGE: 33 minutes. Job ID: [id number]
== END 2019-03-23 16:45 | disposition home or self-care (01) | DRG 475 ==
LOC: ERS 11:08 → T4-B 13:25
PROVIDERS: ADMIT Internal Medicine; ATTEND Internal Medicine
PROC: 0H9MXZZ Drainage of Right Foot Skin, External Approach (ICD-10-PCS; principal; 2019-03-21)
PROC: 0Y6M0ZB Detachment at Right Foot, Partial 2nd Ray, Open Approach (ICD-10-PCS; 2019-03-21)
PROC: 0Y6M0ZC Detachment at Right Foot, Partial 3rd Ray, Open Approach (ICD-10-PCS; 2019-03-21)
PROC: 0HBMXZZ Excision of Right Foot Skin, External Approach (ICD-10-PCS; 2019-03-21)
PROC: 02HV33Z Insertion of Infusion Device into Superior Vena Cava, Percutaneous Approach (ICD-10-PCS; 2019-03-21)
DX: M86.8X7 Other osteomyelitis, ankle and foot (principal); L03.115 Cellulitis of right lower limb; L02.611 Cutaneous abscess of right foot; L08.9 Local infection of the skin and subcutaneous tissue, unspecified; F17.200 Nicotine dependence, unspecified, uncomplicated; L97.519 Non-pressure chronic ulcer of other part of right foot with unspecified severity
CPT/HCPCS: 36415; 36569; 80053; 80202; 83605; 85025; 86140; 87040; 87070; 87076; 87205; 96365; 96366; C1751; J0696; J0878; J1100; J1644; J1650; J2001; J2405; J2704; J3010; J3370; J3490; J7050; S0020

== ENCOUNTER 2021-01-03 07:33 | Emergency (ER) | payer MEDICARE, BC ==
[2021-01-03 08:17] LABS: #Basophils 0.1 thou/uL (0.0-0.2); #Eosinphils 0.3 thou/uL (0.0-0.7); #Lymphocytes 2.4 thou/uL (1.20-3.40); #Monocytes 0.6 thou/uL (0.11-0.59); #Neutrophils 5.6 thou/uL (1.40-6.50); %Basophils 1.3 % (0.0-1.0); %Eosinophils 3.4 % (0.0-10.0); %Lymphocytes 26.5 % (21.0-51.0); %Monocytes 6.5 % (0.0-10.0); %Neutrophils 62.2 % (42.0-75.0); Hemoglobin 17.8 g/dL (14.0-18.0); Mean Corpuscular HGB CONC 34.3 g/dL (32.0-36.0); Mean Corpuscular Hemoglobin 32.8 pg (27.0-31.0); Mean Corpuscular Volume 95.5 fL (78.0-98.0); Mean Platelet Volume 7.3 fL (7.4-10.4); Platelet Count 166 thou/uL (130-400); RBC Distribution Width 12.9 % (11.5-14.5); Red Blood Cell (RBC) Count 5.43 mill/uL (4.70-6.10)
--- NOTE | 2021-01-03 08:24 | CT ---
CT BRAIN NONCONTRAST: DATE: 01/03/2021 HISTORY: 75-year-old male with vertigo FINDINGS: There is no evidence of acute intra-axial or extra-axial hemorrhage. There is no midline shift or any other mass effect. There is no extra-axial fluid collection. There is no evidence of obstructive hydrocephalus. Calvarium is intact. There is diffuse brain parenchymal volume loss. There are low att enuation areas in the white matter. These are nonspecific, but in a patient of this age, they are probably chronic ischemic white matter changes due to microvascular atherosclerosis. IMPRESSION: 1) No acute intracranial findings. 2) involutional changes and chronic ischemic white matter changes.
--- NOTE | 2021-01-03 08:34 | RAD ---
XR Chest 1 View Portable HISTORY: Dizziness, edema COMPARISON: 02/10/2015 FINDINGS: The heart size is normal. The lungs are well expanded without focal areas of consolidation, pneumothorax or pleural effusions. There are degenerative changes in the spine. IMPRESSION: No radiographic evidence of acute cardiopulmonary process.
[2021-01-03 08:47] LABS: BUN (Urea Nitrogen) Less than 20 mg/dL (8.4-25.7)
[2021-01-03 08:49] LABS: Albumin 4.1 g/dL (3.4-4.8)
[2021-01-03 08:50] LABS: Chloride 104 mmol/L (98-107); Potassium 4.2 mmol/L (3.5-5.1); Sodium 137 mmol/L (136-145)
[2021-01-03 08:51] LABS: Calcium 8.9 mg/dL (7.8-10.44)
[2021-01-03 08:52] LABS: Glucose 104 mg/dL (83-110); Protein, Total 7.1 g/dL (5.8-8.1)
[2021-01-03 08:53] LABS: Anion Gap 14 mmol/L (10-20); Bilirubin, Total 1.1 mg/dL (0.2-1.2); Carbon Dioxide 23 mmol/L (23-31)
[2021-01-03 08:54] LABS: Alkaline Phosphatase 75 U/L (40-110)
[2021-01-03 08:55] LABS: Calc. Creatinine Clearance 0 mL/min (70-130)
[2021-01-03 08:57] LABS: AST (SGOT) 23 U/L (5-34)
[2021-01-03 08:58] LABS: ALT (SGPT) 17 U/L (8-55)
[2021-01-03] MEDS ORDERED: Aspirin Chewable 81 MG TAB ONE (09:15)
[2021-01-03] MEDS ORDERED: Meclizine HCl 25 MG TAB ONE (09:15)
[2021-01-03 10:17] LABS: Bilirubin Negative (Negative); Blood, Urine Negative (Negative); Clarity Clear (Clear); Glucose, Urine (Dipstick) Normal (Negative); Ketone, Urine Negative (Negative); Leukocyte Negative Leu/uL (Negative); Nitrite Negative (Negative); Protein, Urine (Dipstick) Negative (Neg-Trace); Specific Gravity, Urine 1.022 (1.002-1.036); Urobilinogen Normal mg/dL (Less than 2)
== END 2021-01-03 11:25 | disposition home or self-care (01) ==
LOC: ERS 07:33
DX: R42 Dizziness and giddiness (principal); F17.210 Nicotine dependence, cigarettes, uncomplicated
CPT/HCPCS: 36416; 70450; 71045; 80053; 81003; 83880; 84484; 85025; 93005

== ENCOUNTER 2022-07-03 09:45 | Outpatient (CLI) | payer MEDICARE, BC ==
[~2022-07-03 09:45] MED LIST: Iopamidol 370 76% 100 ML VIAL ONE
== END 2022-07-03 09:46 | disposition home or self-care (01) ==
LOC: BICCT 09:45
PROVIDERS: ATTEND Nurse Practitioner Family
DX: L02.01 Cutaneous abscess of face (principal); R23.4 Changes in skin texture
CPT/HCPCS: 70491; 82565; Q9967